=== PATIENT | female | born 1955 | race Caucasian/White ===

== ENCOUNTER 2017-11-24 11:15 | Emergency (ER) | payer OTHER ==
[~2017-11-24] VITALS: Ht 147.3 cm; Wt 90.7 kg
[~2017-11-24 11:15] MED LIST: BACTRIM DS TAB1 EACH PO; NOHOMEMEDICATIONS; NORCO 5-325 TA1 EACH PO; PERCOCET 5-3251 EACH PO; ZOFRAN4 MG PO
[2017-11-24] MEDS ORDERED: TRIAMCINOLONE A80 G2 TOP (11:58)
[2017-11-24 12:38] VITALS: BP 125/77
== END 2017-11-24 12:39 | disposition home or self-care (01) ==
LOC: M.ERS 11:15
DX: R21 Rash and other nonspecific skin eruption (principal); Z90.49 Acquired absence of other specified parts of digestive tract; Z90.710 Acquired absence of both cervix and uterus; Z88.5 Allergy status to narcotic agent

== ENCOUNTER 2019-03-06 19:55 | Emergency (ER) | payer OTHER ==
[~2019-03-06] VITALS: Ht 147.3 cm; Wt 83.0 kg
[~2019-03-06 19:55] MED LIST changes: +TRIAMCINOLONE A80 G2 TOP
[2019-03-06 20:23] LABS: ABSOLUTE BASOPHILS 0.1 thou/uL (0.0-0.2); ABSOLUTE EOSINOPHILS 0.1 thou/uL (0.0-0.7); ABSOLUTE MONOCYTES 0.4 thou/uL (0.0-1.2); ABSOLUTE NEUTROPHILS 2.9 thou/uL (1.6-8.1); EOSINOPHILS 2.5 %; HEMATOCRIT 45.3 % (37.0-47.0); HEMOGLOBIN 15.1 gm/dL (12.0-15.0); MCH 31.1 pg (26.0-34.0); MCHC 33.4 g/dL (28.0-37.0); MCV 93.2 fL (80.0-100.0); MONOCYTES 7.6 %; MPV 8.8 fl. (7.2-11.1); NUCLEATED RBCS 0 /100WBC; PLATELET COUNT* 226 thou/uL (150-400); POLYS 51.9 %; RBC 4.86 mil/uL (4.20-5.00); RDW-CV 13.3 % (10.5-14.5); WBC 5.5 thou/uL (4.0-11.0)
[2019-03-06 20:28] LABS: ANION GAP 5 mmol/L (7-16); BUN 8 mg/dL (7-18); CALCIUM 8.5 mg/dL (8.5-10.1); CHLORIDE 107 mmol/L (98-107); CO2 30 mmol/L (21-32); CREATININE 0.7 mg/dL (0.6-1.3); GLUCOSE 88 mg/dL (70-99); POTASSIUM 3.8 mmol/L (3.5-5.1); SODIUM 142 mmol/L (136-145)
[2019-03-06 20:32] LABS: APTT 26.8 Seconds (25.0-31.3)
[2019-03-06 20:37] LABS: URINE BILIRUBIN NEGATIVE (Negative); URINE BLOOD NEGATIVE (Negative); URINE CLARITY CLEAR; URINE COLOR YELLOW; URINE GLUCOSE-RANDOM NEGATIVE (Negative); URINE KETONES NEGATIVE (Negative); URINE LEUKOCYTES-REFLEX NEGATIVE (Negative); URINE NITRITE-REFLEX NEGATIVE (Negative); URINE PROTEIN NEGATIVE (Negative); URINE UROBILINOGEN 0.2 E.U./dl (0.2-1.0)
[2019-03-06 20:42] LABS: ALBUMIN 3.2 g/dL (3.4-5.0); ALKALINE PHOSPHATASE 89 U/L (46-116); SGOT 15 U/L (15-37); SGPT 23 U/L (30-65); TOTAL BILIRUBIN 0.2 mg/dL (<0.1-1.0); TOTAL PROTEIN 6.6 g/dL (6.4-8.2); TROPONIN-I LEVEL <0.06 ng/mL (<0.06)
[2019-03-06 20:44] LABS: LIPASE 115 U/L (73-393); NT-PRO BRAIN NAT PEPTIDE 148 pg/mL (<300)
[2019-03-06] MEDS ORDERED: ZOFRAN ODT4 MG PO (21:23)
[2019-03-06 21:43] VITALS: BP 127/79
--- NOTE | 2019-03-07 12:00 | EKG ---
[place] [address] ELECTROCARDIOGRAM REPORT Name: LJ FIGUEROA Room: [facility]#: [id number] Admission: 03/06/19 Attend Phys: Discharge: 03/06/19 Date of : 59 Report #: [id number] THIS REPORT FOR: //name// [facility] ED Test Date: 2019-03-06 Test Time: 20:03:45 Pat Name: LJ FIGUEROA Department: Room: Gender: F Hospital Receiving Clerk: MARCIA : 1955 Requested By: Olivia Lopez Order Number: [id number] MD: Casimiro Landa Measurements Intervals [place] Rate: 68 P: 61 GA: 130 QRS: 57 QRSD: 87 T: 52 QT: 410 QTc: 437 Interpretive Statements Sinus rhythm No previous ECG available for comparison Electronically Signed On 03-07-2019 12:00:12 CDT by Casimiro Landa [email or web address] <ELECTRONICALLY SIGNED> By: Casimiro Landa MD, [facility] 03/07/19 1200 02 02 Casimiro Landa MD, FACC /EPI
== END 2019-03-06 21:43 | disposition home or self-care (01) ==
LOC: M.ERS 19:55
PROVIDERS: Nurse Practitioner Family
DX: J44.9 Chronic obstructive pulmonary disease, unspecified (principal); R11.2 Nausea with vomiting, unspecified; F17.200 Nicotine dependence, unspecified, uncomplicated; Z88.8 Allergy status to other drugs, medicaments and biological substances; Z90.49 Acquired absence of other specified parts of digestive tract; Z90.710 Acquired absence of both cervix and uterus

== ENCOUNTER 2019-03-14 06:56 | Emergency (ER) | payer OTHER ==
[~2019-03-14] VITALS: Ht 147.3 cm; Wt 82.6 kg
[~2019-03-14 06:56] MED LIST changes: +ZOFRAN ODT4 MG PO
[2019-03-14] MEDS ORDERED: NORCO 5-325 TA1 EAC1 PO (08:06)
[2019-03-14 08:21] VITALS: BP 133/70
== END 2019-03-14 08:22 | disposition home or self-care (01) ==
LOC: M.ERS 06:56
DX: S20.211A Contusion of right front wall of thorax, initial encounter (principal); F17.210 Nicotine dependence, cigarettes, uncomplicated; Z88.6 Allergy status to analgesic agent; Z90.710 Acquired absence of both cervix and uterus; Z90.49 Acquired absence of other specified parts of digestive tract; W22.8XXA Striking against or struck by other objects, initial encounter; Y92.89 Other specified places as the place of occurrence of the external cause; Y93.89 Activity, other specified; Y99.8 Other external cause status